=== PATIENT | female | born 1950 | race Caucasian/White ===

== ENCOUNTER 2016-11-03 08:51 | Day surgery (SDC) | payer OTHER ==
[2016-08-25 14:12] VITALS: BMI 42.0
[2016-08-25 14:18] LABS: BASO % 0.1 %; BASO ABS # 0.01 K/uL (0-0.2); COMPLETE YES; HEMATOCRIT 37.4 % (37-47); IG% 0.1 %; LYMPH ABS # 1.96 K/uL (1.2-3.4); MEAN CELL VOLUME 89.9 fL (80-100); MEAN CORPUSCULAR HEMOGLOBIN 29.1 pg (25-34); MEAN CORPUSCULAR HGB CONC 32.4 g/dl (32-36); MEAN PLATELET VOLUME 10.1 fL (7.4-10.4); MONO % 3.6 %; NEUT % 66.2 %; PLATELET COUNT 207 K/uL (130-400); RED BLOOD COUNT 4.16 M/uL (4.2-5.4); WHITE BLOOD COUNT 6.75 K/uL (4.8-10.8)
[2016-08-25 14:34] LABS: INR 1.1 (0.9-1.1); PARTIAL THROMBOPLASTIN RATIO 1.9; PROTHROMBIN TIME (PATIENT) 11.5 SECONDS (9.0-12.0)
[2016-08-25 14:40] LABS: BUN/CREATININE RATIO 20.7 (10-20); CALCIUM 8.7 mg/dl (8.5-10.1); CREATININE 0.7 mg/dl (0.60-1.20); POTASSIUM 4.2 mmol/L (3.5-5.1)
--- NOTE | 2016-08-25 15:38 | DIAGNOSTIC IMAGING REPORT ---
LATERAL RADIOGRAPHS OF THE CERVICAL SPINE, INCLUDING FLEXION AND EXTENSION CLINICAL HISTORY: Preoperative evaluation. Rheumatoid arthritis. COMPARISON STUDY: No previous studies for comparison. FINDINGS: Alignment of the cervical spine is anatomic. The C1-C2 articulation is partially obscured on this exam but there is no convincing evidence for instability. Mild to moderate multilevel degenerative changes are present. Vertebral body heights are maintained. IMPRESSION: No convincing evidence for C1-C2 instability. Electronically signed by: Darrick Bhakta M.D. 08/25/2016 3:36 PM
--- NOTE | 2016-08-28 10:06 | PAT Medication Instructions ---
Service Date Aug 28, 2016. Current Home Medication List Atorvastatin (Lipitor Unknown Dose), 10 MG PO QPM Clonazepam (Klonopin), 0.5 MG PO QAM Escitalopram (Lexapro), 10 MG PO BID Furosemide (Lasix), 20 MG PO QAM Insulin Glargine (Lantus), 30 UNITS SC BID Insulin Lispro (Humalog), 0 SC Sennosides-Docusate Sodium (Stool Softener), 1 TAB PO QAM [Xarelto], 1 TAB PO BID Medication Instructions For Your Scheduled Surgery - Check with surgeon/PCP for instructions: [Xarelto], 1 TAB PO BID - Hold the following medications the morning of surgery: Furosemide (Lasix), 20 MG PO QAM Insulin Lispro (Humalog), 0 SC Sennosides-Docusate Sodium (Stool Softener), 1 TAB PO QAM - Take the following medications the morning of surgery with a sip of water: Escitalopram (Lexapro), 10 MG PO BID Clonazepam (Klonopin), 0.5 MG PO QAM - Take the following medications as scheduled the night before surgery: Escitalopram (Lexapro), 10 MG PO BID Atorvastatin (Lipitor Unknown Dose), 10 MG PO QPM - For Insulin Dependent Diabetic patients: Test blood sugar A.M. of surgery. - If blood sugar greater than 150, take half of your regular dose of: Insulin Glargine (Lantus), take 15 units - If blood sugar less than 150, do not take any: Insulin Glargine (Lantus ) If you have any questions please call us at [phone] (Kristina Flower PA-C) or [phone] or [phone]
--- NOTE | 2016-11-02 19:21 | HISTORY & PHYSICAL EXAMINATION ---
DATE OF ADMISSION: 11/03/2016 HISTORY AND PHYSICAL ADMISSION NOTE CHIEF COMPLAINT: Severe external impingement of the right shoulder. HISTORY OF PRESENT ILLNESS: Rosario is a pleasant 66-year-old female who has been having almost a year long history of right shoulder pain. She does not recall any trauma. MRI and clinical examination of the study of her shoulder has been diagnostic for severe external impingement. After failing a year of conservative treatment including multiple injections, she has elected to undergo arthroscopy. PAST MEDICAL HISTORY: Includes insulin-dependent diabetes, osteoarthritis, hemophilia and asthma. PAST SURGICAL HISTORY: Significant for a lumbar procedure, hysterectomy, and cholecystectomy. ALLERGIES: BEE STINGS, GOOSE FEATHERS AND PENICILLIN. MEDICATIONS: Include Lipitor 10 mg daily, Klonopin 0.5 mg daily, Lexapro 10 mg daily, Pradaxa 150 mg twice a day, Lasix 20 mg daily, Lantus 30 units subQ twice a day, Humalog injections subcutaneously and Senokot as needed. FAMILY HISTORY: Noncontributory. SOCIAL HISTORY: She is . She never drinks. She has a 20-year history of smoking a pack a day. She has 2 children. REVIEW OF SYSTEMS: She complains of severe right shoulder pain and all other pertinent review of systems is negative. PHYSICAL EXAMINATION: GENERAL: She is awake, alert and oriented x3. She is in no apparent distress. She is very pleasant. HEENT: Pupils are equal, round and reactive to light. Extraocular motion intact. Oral mucosa is pink and moist. VITAL SIGNS: Regular rate per radial pulse. LUNGS: Jossie symmetrically bilaterally with no audible breath sounds. ABDOMEN: Soft, nontender, nondistended. MUSCULOSKELETAL: On physical examination of the right shoulder, she has about 120 degrees of forward flexion and 120 degrees of abduction. She has 3/5 muscle strength to full can testing and 4/5 muscle strength with external rotation, but she has severe pain with strength testing. She has significant pain over the subacromial space and moderate pain over the biceps tendon. IMAGING DATA: MRI of the shoulder shows no evidence of full thickness or rotator cuff tears, but there is signs of severe external impingement. IMPRESSION: External impingement of the right shoulder. PLAN: Will proceed with a right shoulder arthroscopy to include a decompression and biceps tenotomy. Postoperatively, she will be placed in an arm sling and discharged to home on oral pain medications.
[~2016-11-03] VITALS: Ht 157.5 cm; Wt 104.5 kg
[~2016-11-03 08:51] MED LIST: ATROPINE SULFATE 0.1 MG/ML 5ML SYR IV PRN; CLINDAMYCIN 600 MG/54 ML D5W 54 ML IV SCH; CLON0.5T3 PO; DABI150C PO; ESCI10TA17 PO; EpHEDrine SULFATE INJ 50 MG/ML AMP IV PRN; FAMOTIDINE 20 MG TAB PO SCH; FURO-85 PO; GABAPENTIN 300 MG CAP PO SCH; HMLI SC; HYDROmorphone INJ 1 MG/ML SYR IV PRN; INSDGI SC; LACTATED RINGER'S 1000ML 1,000 ML IV SCH; LACTATED RINGER'S 1000ML IV SCH; LPTUNK PO; ONDANSETRON INJ 2 MG/ML 2 ML VIAL IV PRN; ROPIVACAINE 0.5% 5 MG/ML 30 ML VIAL ONE; SENNTAB23 PO
[2016-11-03 09:17] VITALS: BP 113/50; PULSE 91; TEMP 36.7; O2SAT 92; Ht 157.5 cm; Wt 104.5 kg
[2016-11-03 10:06] LABS: PARTIAL THROMBOPLASTIN RATIO 1.4
[2016-11-03] MEDS ORDERED: MIDAZOLAM HCL 1 MG/ML 2ML VIAL ONE (10:10)
[2016-11-03] MEDS ORDERED: FENTANYL CITRATE INJ 50 MCG/1 ML 2 ML VIAL ONE (10:11)
[2016-11-03] MEDS ORDERED: KETAMINE HCL INJ 50 MG/ML 10 ML VIAL ONE (10:30)
[2016-11-03] MEDS ORDERED: ACETAMINOPHEN 1000 MG/100 ML IV IV ONE (11:02)
--- NOTE | 2016-11-03 11:52 | History & Physical Bridge Note ---
H&P Re-Evaluation Bridge Note: I have examined the patient, reviewed the History & Physical and in the interval since the performance of the History & Physical I have noted the following changes of clinical significance: No changes noted
[2016-11-03] MEDS ORDERED: ALBUT/IPRATROP 3MG/0.5MG NEB 3 ML VIAL INH PRN (12:00)
[2016-11-03] MEDS ORDERED: ROCURONIUM BROMIDE 10 MG/ML 5 ML VIAL ONE (12:37)
[2016-11-03] MEDS ORDERED: EpHEDrine SULFATE INJ 50 MG/ML AMP ONE (12:37)
[2016-11-03] MEDS ORDERED: GLYCOPYRROLATE INJ 0.2 MG/ML VIAL ONE (12:37)
[2016-11-03] MEDS ORDERED: DEXAMETHASONE SOD INJ 4 MG/ML VIAL ONE (12:37)
[2016-11-03] MEDS ORDERED: PROPOFOL IV EMULSION 10 MG/ML 20 ML VIAL IV ONE (12:37)
[2016-11-03] MEDS ORDERED: ONDANSETRON INJ 2 MG/ML 2 ML VIAL ONE (12:37)
[2016-11-03] MEDS ORDERED: NEOSTIGMINE METHYLSULFATE 5 MG/5 ML SYR ONE (12:37)
[2016-11-03] MEDS ORDERED: KETOROLAC TROMETHAMINE 30 MG/ML VIAL ONE (12:37)
[2016-11-03] MEDS ORDERED: LIDOCAINE HCL 2% 2 ML VIAL (20MG/ML) ONE (12:37)
[2016-11-03] MEDS ORDERED: PHENYLEPHRINE HCL INJ 10 MG/ML VIAL ONE (12:42)
[2016-11-03] MEDS ORDERED: BUPIVACAINE/EPINEPHRINE 0.5% MPF 1:200,000 30 ML VIAL INJ ONE (12:43)
[2016-11-03] MEDS ORDERED: OXYC-57 PO (13:27)
[2016-11-03] MEDS ORDERED: KETO10TA PO (13:27)
[2016-11-03] MEDS ORDERED: SODIUM CHLORIDE 0.9% 1000ML 1,000 ML IV SCH (13:28)
--- NOTE | 2016-11-03 13:28 | Discharge Instructions ---
Discharge Instructions Admission Reason for Admission: Right Shoulder Pain, Shoulder Tendonitis Discharge Discharge Diagnosis / Problem: SAME ABOVE Discharge Goals Goal(s): Decrease discomfort, Improve function Activity Recommendations Activity Limitations: as noted below Lifting Limitations: until after follow-up appointment Exercise/Sports Limitations: until after follow-up appointment Shower/Bathe: tomorrow Driving or Machine Use: MAY NOT DRIVE UNTIL SEEN FOR FOLLOW-UP . Instructions / Follow-Up Instructions / Follow-Up MEDICATIONS: * Resume previous medications unless instructed otherwise by your surgeon. * Always take pain medication on a full stomach or with food to avoid upset stomach. * Do not drink alcohol or drive while taking narcotics. * Ibuprofen or Tylenol may be taken if narcotic not needed. SPECIAL CARE INSTRUCTIONS: __ None _X_ Keep extremity elevated and iced x 48 hours; apply ice 20-30 minutes 8-10 times/day. May remove at night. __ Sling __24 hrs/day __ Remove at night _X_ Shoulder Immobilizer (MAY REMOVE AFTER 24 HOURS ONLY TO SHOWER AND FOR THERAPY) _X_ 24 hrs/day __ Remove at night _X_ Dressing __ Maintain until seen in office, may shower with plastic over site _X_ Remove dressings in 24-48 hours and then may shower _X_ Cover incisions with band-aids after showering __ Do not remove steri-strips Call physician if chills or temperature rises above 102 degrees or pain unrelieved by prescribed pain medications at . . Current Hospital Diet Patient's current hospital diet: Discharge Diet Recommended Diet: Regular Diet Fluid Restriction: None Procedures Procedures Performed: Right Shoulder Arthroscopy: Subacromial Decompression, Biceps Tenotomy, Medium Rotator Cuff Repair Pending Studies Studies pending at discharge: no Work Instructions Return To Work: after follow-up Lifting Limitations: NO LIFTING WITH RIGHT ARM Medical Emergencies . Who to Call and When: Medical Emergencies: If at any time you feel your situation is an emergency, please call 911 immediately. . Non-Emergent Contact Non-Emergency issues call your: Primary Care Provider Call Non-Emergent contact if: you have a fever, temperature is above 101.5 . "Provider Documentation" section prepared by Mic Black. VTE Core Measure Inpt VTE Proph given/why not?: Treatment not indicated
[2016-11-03] MEDS ORDERED: ONDANSETRON INJ 2 MG/ML 2 ML VIAL IV PRN (13:30)
[2016-11-03] MEDS ORDERED: OXYCODONE/ACETAMINOPHEN 5-325 TAB PO PRN ×2 (13:30)
[2016-11-03] MEDS: FENTANYL CITRATE INJ 50 MCG/1 ML 2 ML VIAL IV PRN ×4 (13:34→13:49)
--- NOTE | 2016-11-03 14:15 | Anesthesiology Progress Note ---
Anesthesia Post Op Note Date & Time Nov 03, 2016 at 14:15 Vital Signs Pain Intensity: 7 Vital Signs Past 12 Hours Date Time Temp Pulse Resp B/P Pulse Ox O2 Delivery O2 Flow Rate FiO2 11/03/16 14:05 36.0 92 22 136/57 94 Nasal Cannula 2 11/03/16 13:55 92 15 145/47 96 Nasal Cannula 2 11/03/16 13:45 92 18 133/73 100 Mask 10 11/03/16 13:35 86 15 124/75 100 Mask 10 11/03/16 13:28 36.0 98 24 179/86 100 Mask 10 11/03/16 09:17 36.7 91 18 113/50 92 Room Air Notes Mental Status: alert / awake / arousable, participated in evaluation Pt Amnestic to Procedure: Yes Nausea / Vomiting: adequately controlled Pain: adequately controlled, improving with treatment Airway Patency, RR, SpO2: stable & adequate BP & HR: stable & adequate Hydration State: stable & adequate Anesthetic Complications: no major complications apparent
[2016-11-03 14:20] VITALS: BP 120/71; PULSE 85; TEMP 36.3; O2SAT 91
[2016-11-03 15:03] VITALS: BP 165/90; PULSE 90; TEMP 36.4; O2SAT 93
[2016-11-03 15:25] VITALS: BP 123/62; PULSE 89; TEMP 36.4; O2SAT 92
--- NOTE | 2016-11-03 15:50 | [facility] Post Operative Brief Note ---
Immediate Operative Summary Operative Date Nov 03, 2016. Pre-Operative Diagnosis External Impingement of the Right Shoulder Post-Operative Diagnosis External Impingement of the Right Shoulder Procedure(s) Performed Right Shoulder Arthroscopy: Subacromial Decompression, Biceps Tenotomy, Medium Rotator Cuff Repair Surgeon Dr. Jennings Auto Body Customizer Surgeon(s) AIMEE Martinez Estimated Blood Loss 2 ml Findings as above Specimens none per surgeon Complication(s) None Disposition Recovery Room / PACU
--- NOTE | 2016-11-03 16:35 | OPERATIVE REPORT ---
DATE OF OPERATION: 11/03/2016 PREOPERATIVE DIAGNOSES: Severe external impingement and biceps tendinopathy of the right shoulder. POSTOPERATIVE DIAGNOSES: Severe external impingement with medium sized degenerative rotator cuff tear and biceps tendinopathy of the right shoulder. PROCEDURES: Right shoulder diagnostic arthroscopy with limited debridement, acromioplasty, medium sized degenerative rotator cuff repair and biceps tenotomy. SURGEON: Dr. Henok Jennings. INFORMATION SECURITY MANAGER: Guzman Black PA-C, whose assistance was necessary for positioning the arm and helping with instrumentation. ANESTHESIA: General with a right interscalene nerve block. COMPLICATIONS: None. CONDITION: Stable to PACU. INDICATIONS AND DESCRIPTION OF PROCEDURE: Rosario is a pleasant 66-year-old female who presented to my office with chronic right shoulder pain. MRI and clinical examination showed severe external impingement. After failing conservative treatment, she elected to undergo arthroscopy. On 11/03/2016 she arrived at [facility] for the above procedure. She was seen in the preoperative holding area and the operative extremity was identified and signed. She was given a preoperative antibiotic and a right interscalene nerve block. She was taken back to the operating room, laid on the table in supine position and put under general anesthesia. She was then put into the beachchair position. The right shoulder was prepped and draped in a sterile fashion. Time-out was done and the patient and operative extremity was properly identified. A scope was introduced in the posterior portal. Diagnostic arthroscopy showed no cartilage damage to the humeral head or the glenoid. There was some fraying of the biceps tendon. There was also fraying and significant weakness of the supraspinatus. An anterior portal was made. A shaver was used to do a limited debridement of the intraarticular structures and the biceps tendon was arthroscopically tenotomized. A shaver was used to lightly debride the rotator cuff and was obvious that there was a degenerative near full thickness tear of the supraspinatus. The scope was then put into the subacromial space. A lateral portal was made. A shaver was used to do a complete subacromial and subdeltoid bursectomy. An ablator was used to tease the coracoacromial ligament off the undersurface of the acromion and a 5-0 raza was used to complete an acromioplasty of a Bigliani type 3 acromion. A shaver was used to remove any excess debris and attention was turned to the rotator cuff. An additional anterolateral portal was made and Viola cannulas were placed through each of the lateral portals. The cuff tear was completed and it was a crescent shape degenerative tear. Multiple pictures were taken. The greater tuberosity was prepared with a ring curette and a microfracture. The rotator cuff was then fixed with an Arthrex SpeedBridge configuration using 4.75 mm BioComposite SwiveLock suture anchors and FiberTape. This gave a good fixation. Multiple pictures were taken. The scope was placed back into the glenohumeral joint and the articular margin of the rotator cuff had been restored. Pictures were taken. Arthroscopic instruments were removed from the shoulder. Portal sites were closed with 3-0 nylon. She was then placed in a soft dressing and an abduction arm sling. She was then extubated, transferred to a litter and taken to the postanesthesia care unit in stable condition. She tolerated the procedure well. I attest to the content of the Intraoperative Record and any orders documented therein. Any exceptio ns are noted below.
== END 2016-11-03 15:40 | disposition home or self-care (01) ==
LOC: C.ACU 08:51
PROVIDERS: ATTEND Orthopaedic Surgery
DX: M75.41 Impingement syndrome of right shoulder (principal); M75.21 Bicipital tendinitis, right shoulder; E11.9 Type 2 diabetes mellitus without complications; F17.210 Nicotine dependence, cigarettes, uncomplicated; Z79.4 Long term (current) use of insulin; Z79.899 Other long term (current) drug therapy